=== PATIENT | female | born 2000 | race Caucasian/White ===

== ENCOUNTER 2019-04-29 07:34 | Outpatient (CLI) | payer OTHER ==
--- NOTE | 2019-04-29 08:16 | ULT ---
LIMITED RIGHT BREAST ULTRASOUND: Date: 04/29/19 PROVIDED CLINICAL HISTORY: Right nipple discharge. FINDINGS: Limited sonographic interrogation was performed of the right breast in the retroareolar region. Comparison imaging of the left retroareolar region was also performed. There is mild asymmetric retroareolar ductal dilatation on the right as compared to the left. There i s no evidence for intradural mass or debris. No evidence for concerning sonographic finding. IMPRESSION: Nonspecific mild retroareolar duct ectasia on the right. POS: OFF
== END 2019-04-29 07:35 | disposition home or self-care (01) ==
LOC: BICULT 07:34
PROVIDERS: ATTEND Obstetrics & Gynecology
DX: N64.3 Galactorrhea not associated with childbirth (principal); N60.41 Mammary duct ectasia of right breast